=== PATIENT | female | born 2000 | race Caucasian/White ===

== ENCOUNTER 2020-06-17 10:40 | Emergency (ER) | payer BC, OTHER ==
[~2020-06-17] VITALS: Ht 177.8 cm; Wt 75.0 kg
[2020-06-17] MEDS ORDERED: IV NORMAL SALINE 1,000ML 1,000 ML IV ONE (11:00)
--- NOTE | 2020-06-17 11:20 | PHYS DOC ---
Past History Past Medical History: Asthma, Other Additional Past Medical Histor: congential hernia Past Surgical History: Tonsillectomy Additional Past Surgical Histo: hernia, Alcohol Use: None General Adult EDM: Chief Complaint: DIZZY/LIGHT HEADED HPI: HPI: 19-year-old female presents with palpitations. The patient is , 17 weeks . She has been having palpitations since she was 13. There is been no official diagnosis or why these occur. She has had some increased frequency with . She presents today because she had additional chest pain along with the palpitations. Prior to arrival, the palpitations have stopped, but the chest discomfort remains. It seems to be exacerbated by changing positions. The patient has talked to her OB office and they recommended she come here for evaluation. The patient further tells me that over the last 3 or 4 weeks she has had episodes where her body gets very weak and she feels like she is going to blackout, but does not lose consciousness. The last 10 to 15 seconds. She has not had this before either. She is not a smoker. She denies any long travel lately. She denies shortness of breath, but states that she feels like taking a deep breath causes pain. She denies fever or chills. Review of Systems: Review of Systems: Constitutional: Denies fever or chills Eyes: Denies change in visual acuity HENT: Denies nasal congestion or sore throat Respiratory: Pain with deep breathing Cardiovascular: chest pain, palpitations GI: Denies abdominal pain, nausea, vomiting, bloody stools or diarrhea : Denies dysuria Musculoskeletal: Denies back pain or joint pain Integument: Denies rash Neurologic: Denies headache, focal weakness or sensory changes Endocrine: Denies polyuria or polydipsia Lymphatic: Denies swollen glands Psychiatric: Denies depression or anxiety Heart Score: Risk Factors: Risk Factors: DM, Current or recent (<one month) smoker, HTN, HLP, family history of CAD, obesity. Risk Scores: Score 0 - 3: 2.5% MACE over next 6 weeks - Discharge Home Score 4 - 6: 20.3% MACE over next 6 weeks - Admit for Clinical Observation Score 7 - 10: 72.7% MACE over next 6 weeks - Early Invasive Strategies Current Medications: Current Meds: Current Medications Medications (Trade) Dose Ordered Sig/Moisés Start Time Stop Time Status Last Admin Dose Admin Sodium Chloride 1,000 ml @ 1,000 mls/hr 1X ONCE 06/17/20 11:00 06/17/20 11:59 UNV Allergies: Allergies: Allergies Coded Allergies Type Severity Reaction Last Updated Verified Penicillins Allergy Unknown 06/17/20 Yes Sulfa (Sulfonamide Antibiotics) Allergy Unknown 06/17/20 Yes Physical Exam: PE: Constitutional: Well developed, well nourished, no acute distress, non-toxic appearance. [] HENT: Normocephalic, atraumatic, bilateral external ears normal, oropharynx moist, no oral exudates, nose normal. [] Eyes: PERRLA, EOMI, conjunctiva normal, no discharge. [] Neck: Normal range of motion, no tenderness, supple, no stridor. [] Cardiovascular: Heart rate 81, regular rhythm, no murmur [] Lungs & Thorax: Bilateral breath sounds clear to auscultation [] Abdomen: Bowel sounds normal, gravid uterus, no masses, no pulsatile masses. [] Skin: Warm, dry, no erythema, no rash. [] Back: No tenderness, no CVA tenderness. [] Extremities: No tenderness, no cyanosis, no clubbing, ROM intact, no edema. [] Neurologic: Alert and oriented X 3, normal motor function, normal sensory function, no focal deficits noted. [] Psychologic: Affect normal, judgement normal, mood normal. [] Current Patient Data: Vital Signs: Vital Signs Date Time Temp Pulse Resp B/P (MAP) Pulse Ox O2 Delivery O2 Flow Rate FiO2 06/17/20 10:54 97.7 87 18 106/80 (89) 97 Room Air EKG: EKG: [] Radiology/Procedures: Radiology/Procedures: [] Impressions: CT ANGIOGRAPHY CHEST INDICATION: SOB, , PE Comparison: None. TECHNIQUE: Following the uneventful administration of intravenous contrast, 75 cc Omnipaque 350, axial CT sections were obtained through the lungs and upper abdomen. Multiplanar reconstructions and MIP images were obtained. PQRS compliance statement: One or more of the following individualized dose reduction techniques were utilized for this examination: 1. Automated exposure control 2. Adjustment of the mA and/or kV according to patient size 3. Use of iterative reconstruction technique FINDINGS: Pulmonary arteries: No evidence of pulmonary thromboembolic disease. Lungs and Airways: No pulmonary mass or consolidation. No abnormality of the central airways. Pleura: The pleural spaces are normal. Heart and Mediastinum: The visualized thyroid is normal in size and attenuation. No axillary or supraclavicular lymphadenopathy. No mediastinal, hilar or retrocrural lymphadenopathy. The heart and pericardium are within normal limits. The great vessels of the thorax are normal. Abdomen: Limited images through the upper abdomen show no abnormality of the visualized organs. Bones and Soft Tissues: The visualized bones and chest wall soft tissues are within normal limits. IMPRESSION: 1. No evidence of pulmonary thromboembolic disease. 2. No pulmonary mass or consolidation. Electronically signed by: Geri Mena MD (06/17/2020 12:41 PM) [id number] DICTATED AND SIGNED BY: GERI MENA MD DATE: 06/17/201240 CC: MIKE ORTIZ DO; MINA MEDINA MD Course & Med Decision Making: Course & Med Decision Making Pertinent Labs and Imaging studies reviewed. (See chart for details) The patient's heart rate is normal at baseline, but while I was talking with her it would go up to 105 just from talking. Her oxygen saturation is normal. Based on her story, I feel obligated to rule out pulmonary embolism. Her EKG is unremarkable. I have ordered a chest x-ray to look for obvious abnormality. I have also ordered a VQ scan. She does not have lower extremity symptoms. The radiologist actually recommended CTA as the most helpful and reasonable risk. Patient agreed to this. Her CT Opal of the chest was negative for pulmonary embolus. Her labs are unremarkable except for urinary tract infection. I will treat her with Keflex for 5 days. I believe that she can follow-up with her OB office. She is stable for discharge at this time. [] Dragon Disclaimer: Dragon Disclaimer: This electronic medical record was generated, in whole or in part, using a voice recognition dictation system. Departure Departure: Impression: Primary Impression: Shortness of breath Additional Impressions: Qualified Codes: Z3A.17 - 17 weeks gestation of UTI (urinary tract infection) Qualified Codes: N30.00 - Acute cystitis without hematuria Disposition: HOME/RESIDENCE PRIOR TO ADM Condition: STABLE Referrals: MINA MEDINA MD (PCP) Patient Instructions: Urinary Tract Infection, [id number] Scripts Cephalexin (KEFLEX) 500 Mg Capsule 1 CAP PO TID for UTI for 7 Days, #21 CAP 0 Refills Prov: MIKE ORTIZ DO 06/17/20 Justification of Admission: Justification of Admission: Justification of Admission Dx: N/A MIKE ORTIZ DO Jun 17, 2020 11:20
[2020-06-17 11:25] LABS: BASO % 1 % (0-3); EOS % 0 % (0-3); HEMATOCRIT 37.4 % (36.0-47.0); HEMOGLOBIN 12.8 g/dL (12.0-15.5); LYMPH # 1.1 x10^3/uL (1.0-4.8); LYMPH % 14 % (24-48); MEAN CORPUSCULAR HEMOGLOBIN 30 pg (25-35); MEAN CORPUSCULAR HGB CONC 34 g/dL (31-37); MEAN CORPUSCULAR VOLUME 88 fL (79-100); MONO # 0.4 x10^3/uL (0.0-1.1); MONO % 5 % (0-9); NEUT # 6.3 x10^3uL (1.8-7.7); NEUT % 79 % (31-73); PLATELET COUNT 206 x10^3/uL (140-400); RED BLOOD COUNT 4.23 x10^6/uL (3.50-5.40); RED CELL DISTRIBUTION WIDTH 13.4 % (11.5-14.5)
[2020-06-17 11:28] LABS: CALCIUM 8.8 mg/dL (8.5-10.1); CREATININE 0.6 mg/dL (0.6-1.0); GFR 128.8; POTASSIUM 3.8 mmol/L (3.5-5.1)
[2020-06-17 11:34] LABS: ALBUMIN 3.4 g/dL (3.4-5.0); ALBUMIN/GLOBULIN RATIO 0.9 (1.0-1.7); TOTAL BILIRUBIN 0.2 mg/dL (0.2-1.0)
--- NOTE | 2020-06-17 11:43 | EKG ---
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
[2020-06-17 11:53] LABS: BARBITURATES NEG (NEG); BENZODIAZEPINES NEG (NEG); CANNABINOIDS NEG (NEG); COCAINE NEG (NEG); METHADONE NEG (NEG); OPIATES NEG (NEG); PHENCYCLIDINE NEG (NEG)
[2020-06-17 11:54] LABS: AMPHETAMINE/METHAMPHETAMINE NEG (NEG)
[2020-06-17 12:00] LABS: BACTERIA,URINE MANY /HPF (0-FEW); BILIRUBIN,URINE NEG (NEG); CLARITY,URINE CLOUDY; COLOR,URINE YELLOW; GLUCOSE,URINE NEG (NEG); NITRITE,URINE POS (NEG); RBC,URINE 0 /HPF (0-2)
[2020-06-17] MEDS ORDERED: IOHEXOL 350 MG/ML 100 ML VIAL. IV ONE (12:00)
[2020-06-17 12:01] LABS: SQUAMOUS EPITHELIAL CELL,UR FEW /LPF
[2020-06-17] MEDS ORDERED: CONTRAST GIVEN. MC PRN (12:15)
[2020-06-17 12:31] VITALS: BP 108/64
--- NOTE | 2020-06-17 12:43 | RAD ---
CT ANGIOGRAPHY CHEST INDICATION: SOB, , PE Comparison: None. TECHNIQUE: Following the uneventful administration of intravenous contrast, 75 cc Omnipaque 350, axial CT sections were obtained through the lungs and upper abdomen. Multiplanar reconstructions and MIP images were obtained. PQRS compliance statement: One or more of the following individualized dose reduction techniques were utilized for this examination: 1. Automated exposure control 2. Adjustment of the mA and/or kV according to patient size 3. Use of iterative reconstruction technique FINDINGS: Pulmonary arteries: No evidence of pulmonary thromboembolic disease. Lungs and Airways: No pulmonary mass or consolidation. No abnormality of the central airways. Pleura: The pleural spaces are normal. Heart and Mediastinum: The visualized thyroid is normal in size and attenuation. No axillary or supraclavicular lymphadenopathy. No mediastinal, hilar or retrocrural lymphadenopathy. The heart and pericardium are within normal limits. The great vessels of the thorax are normal. Abdomen: Limited images through the upper abdomen show no abnormality of the visualized organs. Bones and Soft Tissues: The visualized bones and chest wall soft tissues are within normal limits. IMPRESSION: 1. No evidence of pulmonary thromboembolic disease. 2. No pulmonary mass or consolidation. Electronically signed by: Jeffry Mckeon MD (06/17/2020 12:41 PM) [id number]
[2020-06-17] MEDS ORDERED: CEPH-264 PO (13:04)
[2020-06-17] MEDS ORDERED: CEPHALEXIN 250 MG CAPSULE PO ONE (13:15)
== END 2020-06-17 13:15 | disposition home or self-care (01) ==
LOC: ER 12:57
DX: O23.42 Unspecified infection of urinary tract in pregnancy, second trimester (principal); R06.02 Shortness of breath; R07.89 Other chest pain; O99.512 Diseases of the respiratory system complicating pregnancy, second trimester; J45.909 Unspecified asthma, uncomplicated; Z3A.17 17 weeks gestation of pregnancy; Z88.0 Allergy status to penicillin; Z88.2 Allergy status to sulfonamides
CPT/HCPCS: 36415; 71275; 80053; 80307; 81001; 84484; 85025; 87086; 93005; 99285; J7030; Q9967; 87077; 87186

== ENCOUNTER 2020-09-25 13:44 | Emergency (ER) | payer BC, OTHER ==
[~2020-09-25] VITALS: Ht 177.8 cm; Wt 75.0 kg
[2020-09-25 13:44] VITALS: BP 115/72
[~2020-09-25 13:44] MED LIST: CEPH-264 PO
--- NOTE | 2020-09-25 14:49 | PHYS DOC ---
Past History Past Medical History: Asthma, Other Additional Past Medical Histor: congential hernia Past Surgical History: Tonsillectomy Additional Past Surgical Histo: hernia, Alcohol Use: None General Adult EDM: Chief Complaint: OTHER COMPLAINTS HPI: HPI: 20-year-old female presents with decreased movement. She is 7 months and has had significant malaise movement today and she is very concerned. She is delivering at [facility] but she came here. Any significant abdominal cramping or vaginal bleeding. She has had no other significant symptoms. Denies fever or chills. Review of Systems: Review of Systems: Constitutional: Denies fever or chills Eyes: Denies change in visual acuity HENT: Denies nasal congestion or sore throat Respiratory: Denies cough or shortness of breath Cardiovascular: Denies chest pain or edema GI: Denies abdominal pain, nausea, vomiting, bloody stools or diarrhea. Decreased movement : Denies dysuria Musculoskeletal: Denies back pain or joint pain Integument: Denies rash Neurologic: Denies headache, focal weakness or sensory changes Endocrine: Denies polyuria or polydipsia Lymphatic: Denies swollen glands Psychiatric: Denies depression or anxiety Allergies: Allergies: Allergies Coded Allergies Type Severity Reaction Last Updated Verified Penicillins Allergy Unknown 06/17/20 Yes Sulfa (Sulfonamide Antibiotics) Allergy Unknown 06/17/20 Yes Physical Exam: PE: Constitutional: Well developed, well nourished, no acute distress, non-toxic appearance. [] HENT: Normocephalic, atraumatic, bilateral external ears normal, oropharynx moist, no oral exudates, nose normal. [] Eyes: PERRLA, EOMI, conjunctiva normal, no discharge. [] Neck: Normal range of motion, no tenderness, supple, no stridor. [] Cardiovascular:Heart rate regular rhythm, no murmur [] Lungs & Thorax: Bilateral breath sounds clear to auscultation [] Abdomen: Bowel sounds normal, gravid uterus. [] Skin: Warm, dry, no erythema, no rash. [] Back: No tenderness, no CVA tenderness. [] Extremities: No tenderness, no cyanosis, no clubbing, ROM intact, no edema. [] Neurologic: Alert and oriented X 3, normal motor function, normal sensory function, no focal deficits noted. [] Psychologic: Affect normal, judgement normal, mood normal. [] EKG: EKG: [] Radiology/Procedures: Radiology/Procedures: [] Heart Score: Risk Factors: Risk Factors: DM, Current or recent (<one month) smoker, HTN, HLP, family history of CAD, obesity. Risk Scores: Score 0 - 3: 2.5% MACE over next 6 weeks - Discharge Home Score 4 - 6: 20.3% MACE over next 6 weeks - Admit for Clinical Observation Score 7 - 10: 72.7% MACE over next 6 weeks - Early Invasive Strategies Course & Med Decision Making: Course & Med Decision Making Pertinent Labs and Imaging studies reviewed. (See chart for details) The patient's ultrasound was within normal limits. Baby had an adequate heart rate. I have reminded the patient that we do not have a delivery services at this hospital. If she has further concerns with her , she should go to her delivery hospital which is around [facility]. If it is an immediate emergency she is welcome to come here but would be better served with their facility. The patient is stable for discharge at this time. [] Dragon Disclaimer: Dragon Disclaimer: This electronic medical record was generated, in whole or in part, using a voice recognition dictation system. Departure Departure: Impression: Primary Impression: Qualified Codes: Z3A.28 - 28 weeks gestation of Additional Impression: Decreased movement Qualified Codes: O36.8130 - Decreased movements, third trimester, not applicable or unspecified Disposition: 01 DC HOME SELF CARE/HOMELESS Condition: STABLE Referrals: MINA MEDINA MD (PCP) Patient Instructions: - Third Trimester MIKE ORTIZ DO Sep 25, 2020 14:49
--- NOTE | 2020-09-25 15:02 | RAD ---
OB ULTRASOUND, > 14 WEEKS Clinical Indication: Reason: decreased movement, cramping, nausea. Comparison: None. Technique: Multiple grayscale images, color Doppler, and M-mode images of the uterus are obtained. Findings: There is a single intrauterine gestation in cephalic presentation. The placenta is anterior in location without evidence of placenta previa. A nonvascular hypoechogenicity of the placenta measuring 3 x 0.8 cm may be a placental arias. The amount of amniotic fluid appears appropriate. Amniotic fluid index is 20.8 cm. Cervix is not well seen. Biometrical data: BPD = 8.2 cm for 32 weeks 6 days. HC = 29.4 cm for 32 weeks 3 days. AC = 28.4 cm for 32 weeks 3 days. FL = 6.2 cm for 32 weeks 2 days. HC/AC ratio = 1.04. Overall, the estimated sonographic gestational age is 32 weeks and 4 days for an estimated date of delivery of November 16, 2020.. The estimated date of delivery provided by the last menstrual period is November 25, 2020. Estimated weight is 1976 +/- 292 grams. A 4 chamber heart is identified with positive cardiac activity. The estimated heart rate is 136 beats per minute. A complete anatomic survey is not performed due to advanced gestational age. The maternal ovaries are not identified in the adnexa due to overlying bowel gas. Impression: Single live intrauterine with estimated sonographic gestational age of 32 weeks and 4 days. Electronically signed by: Adriano Donis MD (09/25/2020 2:59 PM) [id number]
== END 2020-09-25 14:52 | disposition home or self-care (01) ==
LOC: ER 13:44
DX: O36.8130 Decreased fetal movements, third trimester, not applicable or unspecified (principal); O99.513 Diseases of the respiratory system complicating pregnancy, third trimester; J45.909 Unspecified asthma, uncomplicated; Z3A.32 32 weeks gestation of pregnancy; Z88.0 Allergy status to penicillin; Z88.2 Allergy status to sulfonamides
CPT/HCPCS: 76805; 99284